=== PATIENT | male | born 1980 | race Caucasian/White ===

== ENCOUNTER 2023-09-12 06:07 | Day surgery (SDC) | payer OTHER ==
[2023-09-12] MEDS: Acetaminophen 500 MG Tab PO ONE (06:22)
[2023-09-12] MEDS: Lactated Ringers 1,000 ML IV SCH (06:26)
[2023-09-12] MEDS ORDERED: Rocuronium 50 MG/5 ML Vial ONE (07:18)
[2023-09-12] MEDS ORDERED: Propofol 200 MG/20 ML SDV ONE (07:18)
[2023-09-12] MEDS ORDERED: Succinylcholine 200 MG/10 ML MDV ONE (07:18)
[2023-09-12] MEDS ORDERED: Ondansetron 4 MG/2 ML SDV ONE (07:18)
[2023-09-12] MEDS ORDERED: Glycopyrrolate 0.2 MG/ML 5 ML MDV ONE (07:18)
[2023-09-12] MEDS ORDERED: Neostigmine Methylsulfate 10 MG/10 ML MDV ONE (07:18)
[2023-09-12] MEDS ORDERED: Dexamethasone 4 MG/ML SDV ONE (07:18)
[2023-09-12] MEDS ORDERED: fentaNYL 250 MCG/5 ML SDV ONE ×2 (07:20→07:56)
[2023-09-12] MEDS: ceFAZolin 2 GM in Premix Bag 1 BAG IV ONE (07:40)
[2023-09-12] MEDS: Bupivacaine 0.5%/EPINEPHrine 1:200,000 50 ML MDV ONE (08:25)
[2023-09-12] MEDS ORDERED: Lactated Ringers 1,000 ML ONE (09:39)
[2023-09-12] MEDS: Acetaminophen/HYDROcodone 325-5 MG Tab PO PRN (11:33)
== END 2023-09-12 12:30 | disposition home or self-care (01) ==
LOC: JP.SDS 06:07
PROVIDERS: ATTEND Student in an Organized Health Care Education/Training Program
DX: K40.90 Unilateral inguinal hernia, without obstruction or gangrene, not specified as recurrent (principal); K42.9 Umbilical hernia without obstruction or gangrene; D17.6 Benign lipomatous neoplasm of spermatic cord; J45.20 Mild intermittent asthma, uncomplicated; Z98.890 Other specified postprocedural states; Z79.899 Other long term (current) drug therapy; Z88.6 Allergy status to analgesic agent
CPT/HCPCS: 49650; A9270; C1781; J0330; J0690; J1100; J2405; J2704; J2710; J3010; J3490; J7120